=== PATIENT | female | born 1990 | race Two or more races ===

== ENCOUNTER 2017-04-11 05:40 | Emergency (ER) | payer SELFPAY ==
[2017-04-11 05:56] VITALS: BP 123/91; PULSE 104; RESP 16; TEMP 98.3; O2SAT 97
== END 2017-04-11 06:09 | disposition left against medical advice (07) ==
LOC: C.ER 05:40
DX: S01.111A Laceration without foreign body of right eyelid and periocular area, initial encounter (principal); Y08.89XA Assault by other specified means, initial encounter; Z02.9 Encounter for administrative examinations, unspecified